=== PATIENT | male | born 1990 | race Caucasian/White ===

== ENCOUNTER 2020-01-25 00:42 | Inpatient (IN) | payer MEDICAID ==
[~2020-01-25] VITALS: Ht 162.6 cm; Wt 64.4 kg
[2020-01-25 00:47] VITALS: Ht 162.6 cm; Wt 64.4 kg
[2020-01-25 01:29] LABS: PLATELET COUNT 241 x10^3mcL (130-400); RED CELL DISTRIBUTION WIDTH 12.7 % (11.5-14.5)
[2020-01-25 01:30] LABS: BASOPHIL % 2.1 % (0-2)
[2020-01-25 01:44] LABS: CALCIUM 8.6 mg/dL (8.5-10.1); CARBON DIOXIDE 29.7 mmol/L (21-32); CHLORIDE SERUM 102 mmol/L (98-107); CREATININE SERUM 1.4 mg/dL (0.7-1.3); GFR1 > 60 mL/min; GLUCOSE SERUM 97 mg/dL (74-106); SODIUM SERUM 136 mmol/L (136-145)
[2020-01-25 01:47] LABS: microscopic required? YES; urine erythrocyte 3+ (NEGATIVE)
--- NOTE | 2020-01-25 01:49 | NUR ---
RECEIVED PT IN ROOM 9 AT 0100 WITH C/O OF GEO YOUNG. PT STATES HE WORKED OUT REALLY HARD 2 DAYS AGO AND NOW HE IS REALLY HURTING AND HE HAD DARK URINE TODAY. HE ALSO COMPLAINS OF LOSSING STRENGTH IN HIS HANDS WHILE AT WORK TODAY.
[2020-01-25 01:53] LABS: ALKALINE PHOSPHATASE 37 U/L (46-116); ALT/SGPT 601 U/L (16-63); BILIRUBIN TOTAL 0.3 mg/dL (0.20-1.00); TOTAL PROTEIN, SERUM 6.9 g/dL (6.4-8.2)
[2020-01-25 01:55] LABS: AST/SGOT 2570 U/L (15-37)
--- NOTE | 2020-01-25 02:36 | NUR ---
pt receiving us at the bedside.
--- NOTE | 2020-01-25 04:08 | NUR ---
PT RESTING COMFORTABLY IN BED WAITING FOR DISPOSITION.
--- NOTE | 2020-01-25 05:21 | NUR ---
PT' SUSPICION ABOUT RABDO WASCONFIRMED BY AT 0515 S/P [place] [id number]. WITH NORMAL OF 100. THEREFORE PT IS BEING ADMITED TO TELEMETRY FOR RABDO TREATMENT AND OBSERVATION.
--- NOTE | 2020-01-25 06:49 | NUR ---
lab reported the carline nascimento as negative.
--- NOTE | 2020-01-25 07:08 | NUR ---
LAB CLLED ND REPORTED THAT THE COVID LAVELL TEST WAS NEGATIVE.
--- NOTE | 2020-01-25 07:29 | NUR ---
Assumed care of patient. Patient sleeping comfortably. on monitor, vss. waiting for admission bed. will continue to monitor.
--- NOTE | 2020-01-25 08:00 | NUR ---
RECEIVED PATIENT FROM THE ER ALERT AND ORIENTED TIMES FOUR. PATIENT HAD DARK URINE AND MUSCLE PAIN ON ADMIT TO ER. THER HE RECEIVED FLUIDS ADN HAS IMPROVED ON PAIN AND THE URINE OUT PUT IS CLEAR. PATIENT HAS BEEN ABLE TO AMBULATE AND NO HISTORY OF ISSUES PRIOR. PATIENT IS A STUDENT AND WORKS OUT REGULARLY AND STAETS HE HAD PAIN THREE DAYS AFTER A STRENOUS WORK OUT. PATIENT DENIES SMOKING, ALCOHOL OR DRUG USE. 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 PULSES STRONG AND LUNGA RE CLEAR AND BOWEL SOUNDS ACTIVE. OFFERED A TRAY BUT DID NOT WANT TO EAT AT THIS TIME. LAST BM WAS YESTERDAY AND HAS ALREADY HAD TWO LITERS OF FLUID AND PER THE PATIENT THE URINE COLOR HAS IMPROVED. VITALS AT THIS TIME AT 124/66, 57, 96.6, 18, 98MAP. PATIEN IN IN THE LOW SIXTIES HEARTRATE. WILL CONTINUE TO MONTIOR INDICATED.
[2020-01-25 08:10] LABS: CHOLESTEROL/HDL RATIO 2.7
[2020-01-25 08:22] LABS: FREE T4 1.13 ng/dL (0.76-1.46); FREE THYROXINE INDEX 2.9 ug/dL (1.4-4.5); T4(THYROXINE) 7.5 ug/dL (4.7-13.3)
[2020-01-25 08:29] VITALS: BP 124/66
[2020-01-25 08:51] LABS: BASOPHIL % 0.4 % (0-2); PLATELET COUNT 204 x10^3mcL (130-400); RED CELL DISTRIBUTION WIDTH 13.2 % (11.5-14.5)
[2020-01-25 09:10] LABS: CARBON DIOXIDE 27.9 mmol/L (21-32); CHLORIDE SERUM 105 mmol/L (98-107); CREATININE SERUM 0.9 mg/dL (0.7-1.3); GFR1 > 60 mL/min; GLUCOSE SERUM 88 mg/dL (74-106); POTASSIUM SERUM 4.4 mmol/L (3.5-5.1); SODIUM SERUM 137 mmol/L (136-145)
[2020-01-25 09:11] LABS: AST/SGOT 1906 U/L (15-37)
--- NOTE | 2020-01-25 12:52 | NUR ---
PATIENT IS RESTING AT THIS TIME. NO COMPLAINTS OF PAIN. PATIENT AMBULATORY AND CONTINUED ON IV FLUIDS ORDERED.
[2020-01-25 12:54] VITALS: BP 117/65
[2020-01-25 15:25] LABS: AMPHETAMINE QUAL UR NONE DETECTED (See below)
--- NOTE | 2020-01-25 15:30 | NUR ---
ADDISON TOVER TH PLAN FO CAR E WIT THE PATIENT. HIS LABS ARE IMPROVING AND NO ORDER WAS WRITEN FOR DISCHARGE AT THIS TIME.
[2020-01-25 17:18] VITALS: BP 129/60
--- NOTE | 2020-01-25 19:45 | NUR ---
PT RECIEVED AAO REG RESP NO SOB R/A SAT 97%,ABDO IS SOFT WITH ACTIVE BOWEL SOUNDS,IV INFUSING WELL WITH THE SITE PTENT AND INTACT,PT ON TELE MONITOR AND IN NSR NO ECTOPY OR CHEST PAIN AT THIS TIME,KEPT CLEAN AND DRY TO TOUCH AND WILL CONTINUE TO MONITOR.
[2020-01-25 20:18] VITALS: BP 107/53
[2020-01-26 05:44] VITALS: BP 113/68
--- NOTE | 2020-01-26 06:18 | NUR ---
PT HAD A RESTING NIGHT NO CHANGE AT THIS TIME,WILL CONTINUE TO MONITOR.
--- NOTE | 2020-01-26 07:20 | NUR ---
RECIEVED PT RESTING IN BED WITH NO C/O PAIN OR DISTRESS. A/O X4 WITH NO JACKSON ORDIZZINESS. TELE#8 CONNECTED TO PT AND HE DENIES ANY CP OR PRESSURE. LUNGS CTAB WITH NO SOB NOTED. NS RUNNING AT 200ML/HR IN RAC, CDI AND PATENT. SAFETY PRECAUTIONS IN PLACE, CALL LIGHT WITHIN REACH, WILL MONITOR.
[2020-01-26 08:27] VITALS: BP 117/71
[2020-01-26 11:56] VITALS: BP 126/59
--- NOTE | 2020-01-26 13:11 | NUR ---
HARSHASET DESIGN[place] [id number], WILL CARRY OUT ANY NEW ORDERS.
--- NOTE | 2020-01-26 14:32 | NUR ---
PT STABLE, RESTING IN BED WITH NO DISTRESS NOTED. WILL CONTINUE TO MONITOR.
[2020-01-26 14:37] LABS: T3 TOTAL 1.12 ng/mL
[2020-01-26 15:36] VITALS: BP 120/51
--- NOTE | 2020-01-26 18:46 | NUR ---
PT RESTING IN BED WITH NO C/O PAIN OR DISTRESS. A/O X4 WITH NO JACKSON/ DIZZINESS. TELE#8 CONNECTED TO PT AND HE DENIES ANY CP OR PRESSURE. LUNGS CTAB WITH NO SOB NOTED. NS RUNNING AT 200ML/HR IN RAC, CDI AND PATENT. SAFETY PRECAUTIONS IN PLACE, CALL LIGHT WITHIN REACH, WILL ENDORSE CARE OVER TO MARKETING OPERATIONS ANALYST.
--- NOTE | 2020-01-26 19:44 | NUR ---
PT RECIEVED AAO REG RESP NO SOB,ABDO IS SOFT WITH ACTIVE BOWEL SOUNDS,IV INFUSING WEL WITH THE SITE PATENT AND INTACT,PT ON TELE MONITOR AND IN NSR NO ECTOPY OR CHEST PAIN AT THIS TIME,KEPT CLEAN AND DRY TO TOUCH,CALL LIGHT EASY REACHED AND WILL CONTINUE TO MONITOR.
[2020-01-26 21:10] VITALS: BP 112/58
[2020-01-27 05:32] VITALS: BP 101/54
--- NOTE | 2020-01-27 06:24 | NUR ---
PT HAD A RESTING NIGHT NO CHNAGE AT THIS TIME,WILL CONTINUE TO MONITOR.
[2020-01-27 07:13] LABS: CALCIUM 8.7 mg/dL (8.5-10.1); CARBON DIOXIDE 30.4 mmol/L (21-32); CHLORIDE SERUM 104 mmol/L (98-107); CREATININE SERUM 0.9 mg/dL (0.7-1.3); GFR1 > 60 mL/min; GLUCOSE SERUM 82 mg/dL (74-106); POTASSIUM SERUM 4.2 mmol/L (3.5-5.1); SODIUM SERUM 139 mmol/L (136-145)
--- NOTE | 2020-01-27 07:30 | NUR ---
RECEIVED PT FROM SENIOR COMMUNICATIONS ENGINEER NURSE. PT SLEEPING, A/O X 4. TELE #8, NSR. PT ON RA, BREATHING EVEN/UNLABORED. IN NO ACUTE RESP DISTRESS. IV TO LAC PATENT, INFUSING NS AT 200ML/HR. PT IN NO APPARENT PAIN AT THIS TIME. WILL CONT TO MONITOR.
[2020-01-27 08:45] VITALS: BP 117/59
[2020-01-27 09:14] LABS: BASOPHIL % 0.5 % (0-2); PLATELET COUNT 201 x10^3mcL (130-400); RED CELL DISTRIBUTION WIDTH 13.3 % (11.5-14.5)
--- NOTE | 2020-01-27 10:41 | NUR ---
SPOKE WITH GENOVEVA LABORER CEMENT GUN PLACING REGARDING IV FLUIDS ORDERED. NS IS INFUSING AT 200ML/HR, ASKED LABORER CEMENT GUN PLACING IF FLUIDS COULD BE DECREASED SINCE PT IS EATING AND DRINKING WATER WELL. PER LABORER CEMENT GUN PLACING, FLUIDS WILL BE KEPT AT THIS RATE FOR NOW, BUT LABORER CEMENT GUN PLACING WILL TALK TO THE PT, STATES THAT IF PT IS EXHIBITING NO MORE SYMPTOMS, PT CAN BE DISCHARGED LATER TODAY.
[2020-01-27 12:10] VITALS: BP 119/56
--- NOTE | 2020-01-27 12:21 | NUR ---
PT RESTING IN BED. PT ASKING QUESTIONS ABOUT DISCHARGE, EDUCATED PT ABOUT DISEASE PROCESS AND LABS ORDERED TOMORROW MORNING. PT REPORTS NO PAIN AT THIS TIME. ALL QUESTIONS/CONCERNS ADDRESSED. WILL CONT TO MONITOR.
--- NOTE | 2020-01-27 14:09 | NUR ---
Discount pharmacy card and list to low cost medical clinics given to patient.
--- NOTE | 2020-01-27 15:59 | NUR ---
PT CALLED OVER CALL LIGHT, STATES THAT IV IS LEAKING. IV TO LAC LEAKING, NO SWELLING/ERYTHEMA NOTED. IV TO LAC D/C'D, NEW 22G IV INSERTED TO RFA, PATENT, DRESSING CDI. INFUSING NS AT 200ML/HR. WILL CONT TO MONITOR.
[2020-01-27 16:27] VITALS: BP 110/68
--- NOTE | 2020-01-27 18:58 | NUR ---
PT RESTING IN BED, A/O X 4. TELE #8, NSR. BREATHING EVEN/UNLABORED, IN NO ACUTE RESP DISTRESS. IV TO RFA 22 G INFUSING NS AT 200ML/HR, PATENT, DRESSING CDI. PT REPORTS NO PAIN AT THIS TIME. WILL ENDORSE TO AIRCRAFT NAVIGATOR NURSE.
--- NOTE | 2020-01-27 19:40 | NUR ---
PATIENT RECEIVED IN BED, ALERT AND ORIENTED X 4. DISCUSSED WITH PATIENT PLAN OF CARE. PATIENT DENIES PAIN, SELF REPOSITIONED. NEEDS ANTICIPATED BY STAFF. 22G TO RIGHT FOREARM INTACT. NO SIGNS OF INFILTRATION. PATHOLOGICAL TECHNICIAN #8. NSR. RESPIRATIONS EVEN AND NONLABORED. PATIENT VERBALIZES NEED TO STAFF. NO ACUTE DISTRESS NOTED. VSS.
[2020-01-27 20:30] VITALS: BP 116/70
[2020-01-27 20:50] VITALS: BP 102/61
[2020-01-28] VITALS: BP 118/68
--- NOTE | 2020-01-28 | NUR ---
PATIENT SLEEPING DURING ROUNDING, EASILY AROUSED. VSS. FALL AND SAFETY PRECAUTIONS MAINTAINED. NO ACUTE DISTRESS NOTED.
[2020-01-28 05:42] VITALS: BP 101/59
--- NOTE | 2020-01-28 06:00 | NUR ---
PATIENT SLEEPING DURING ROUNDING, EASILY AROUSED. FALL AND SAFETY PRECAUTIONS MAINTAINED. VSS.
--- NOTE | 2020-01-28 07:17 | NUR ---
RECEIVED PT FROM CLERICAL ORDER FILLER NURSE. PT RESTING IN BED, AOX4, RESP E/U ON RA. DENIES HEADACHE, FATIGUE OR MUSCLE ACHES AT THIS TIME. NO ACUTE DISTRESS NOTED. ON TELE 8 SHOWING SINUS BERE, HR: 58. IV TO RFA W/ NO SIGNS OF INFILTRATION, IVF INFUSING WELL. BED IN LOWEST POSITION AND CALL LIGHT WITHIN REACH. WILL CONTINUE TO MONITOR.
[2020-01-28 07:34] LABS: CALCIUM 8.7 mg/dL (8.5-10.1); CARBON DIOXIDE 25.5 mmol/L (21-32); CHLORIDE SERUM 107 mmol/L (98-107); CREATININE SERUM 0.7 mg/dL (0.7-1.3); GFR1 > 60 mL/min; GLUCOSE SERUM 81 mg/dL (74-106); POTASSIUM SERUM 3.7 mmol/L (3.5-5.1); SODIUM SERUM 142 mmol/L (136-145)
[2020-01-28 08:14] VITALS: BP 107/68
[2020-01-28 12:15] VITALS: BP 96/62
--- NOTE | 2020-01-28 12:39 | NUR ---
PT RESTING IN BED, AOX4, RESP E/U ON RA. DENIES HEADACHE/BODY ACHES OR PAIN/DISCOMFORT AT THIS TIME. NO ACUTE DISTRESS NOTED. BED IN LOWEST POSITION AND CALL LIGHT WITHIN REACH. WILL CONTINUE TO MONITOR.
[2020-01-28 16:08] VITALS: BP 99/59
--- NOTE | 2020-01-28 18:36 | NUR ---
PT RESTING IN BED, AOX4, RESP E/U ON RA. C/O MILD SORENESS TO ARMS BUT TOLERABLE, OTHERWISE NO ACUTE DISTRESS NOTED. IV TO RFA PATENT/INTACT, WNL. BED IN LOWEST POSITION AND CALL LIGHT WITHIN REACH. WILL ENDORSE TO ONCOMING NURSE.
--- NOTE | 2020-01-28 19:35 | NUR ---
PATIENT RECIEVED IN BED ALERT AND ORIENTED X 4. TELE MONITOR #8 SR, SB. ACYANOTIC, SKIN WARM AND DRY TO TOUCH. NO COMPLAINT OF PAIN. SELF REPOSITIONS FOR COMFORT. LCTA BILATERALLY, RESPIRATIONS EVEN AND NONLABORED. PATIENT COMPLAINT OF MINOR DISCOMFORT TO BILATERAL ARMS. 22G IV TO RIGHT FOREARM INFUSING NS @ 22/ML/HR. SITE INTACT. PATIENT SELF AMBULATE TO BATHROOM WITH STEADY GAIT. DISCUSSED WITH PATIENT RN PLAN OF CARE/MEDICATION REGIMEN AND FALL/SAFETY PRECAUTIONS. RN WILL CONTINUE WITH PLAN OF CARE. NO ACUTED DISTRESS NOTED.
[2020-01-28 19:54] VITALS: BP 101/56
--- NOTE | 2020-01-29 | NUR ---
PATIENT SLEEPING DURING ROUNDING, EASILY AROUSED. VSS. LCTA BILATERALLY. NO C/O PAIN, SELF RESPOSITIONS. FALL AND SAFETY PRECAUTIONS MAINTAINED. NO ACUTE DISTRESS NOTED.
[2020-01-29 05:10] VITALS: BP 109/56
--- NOTE | 2020-01-29 06:48 | NUR ---
PATIENT SLEEPING DURING ROUNDING. PT EASILY AROUSED. VSS. NO ACUTE DISTRESS NOTED. VSS.
[2020-01-29 06:52] LABS: BASOPHIL % 0.4 % (0-2); PLATELET COUNT 206 x10^3mcL (130-400); RED CELL DISTRIBUTION WIDTH 12.9 % (11.5-14.5)
[2020-01-29 07:10] LABS: CARBON DIOXIDE 28.9 mmol/L (21-32); CHLORIDE SERUM 110 mmol/L (98-107); CREATININE SERUM 0.9 mg/dL (0.7-1.3); GFR1 > 60 mL/min; GLUCOSE SERUM 88 mg/dL (74-106); POTASSIUM SERUM 4.2 mmol/L (3.5-5.1); SODIUM SERUM 145 mmol/L (136-145)
--- NOTE | 2020-01-29 08:00 | NUR ---
PATIENT IS AOX4, SINUS BRADYCARDIA, RESPIRATIONS EVEN AND UNLABORED ON ROOM AIR. DENIES PAIN, REPORTS MILD MUSCLE SORENESS BUT BETTER THAN DAY OF ADMISSION. PATIENT IS SELF-AMBULATORY. FLUIDS INFUSING AT 200CC/HOUR, URINE IS CLEAR AND YELLOW. UPDATED PATIENT ON PLAN OF CARE. WILL CONTINUE TO MONITOR.
[2020-01-29 09:25] VITALS: BP 113/61
--- NOTE | 2020-01-29 11:26 | NUR ---
[place] [address]. CASEY TOMAS MADE AWARE. AWAITING NEPHROLOGY CONSULT. PATIENT MADE AWARE. AMBULATING IN HALLWAY WITH NO COMPLAINTS AT THIS TIME.
[2020-01-29 13:14] VITALS: BP 111/65
[2020-01-29 15:28] LABS: microscopic required? NO
[2020-01-29 15:33] LABS: UA SPECIFIC GRAVITY 1.015 (1.005-1.035); urine erythrocyte NEGATIVE (NEGATIVE)
[2020-01-29 17:35] VITALS: BP 111/63
--- NOTE | 2020-01-29 19:26 | NUR ---
PT RECIEVED FROM DAY NURSE. PT RESTING IN BED AT THIS TIME. DENIES PAIN OR DISCOMFORT. PT A/OX4, CALM AND COOPERATIVE AT THIS TIME. TELE 8, SR. DENIES CP, NV, DIZZINESS, OR PALPATATIONS AT THIS ITME. PALPABLE PULSES, NO EDEMA AT THIS TIME. BREATHING E/U ON RA. DENIES SOB. ABD SOFT AND FLAT, DENIES PAIN TO PALPATION. AMBULATORY AT BASELINE. IV TO RFA, CDI AND INFUSING. BED AT LOWEST POSITION, CALL LIGHT WITHIN REACH. WILL CONTINUE TO MONITOR.
[2020-01-29 21:37] VITALS: BP 104/64
[2020-01-30 05:45] VITALS: BP 126/75
--- NOTE | 2020-01-30 06:23 | NUR ---
PT RESTING IN BED AT THIS TIME. BREATHING E/U ON RA. NO S.S OF ACUTE DISTRESS NOTED. DENIE PAIN OR DISCOMFORT. ALL NEEDS AND CONCERS ADDRESSED THIS SHIFT. WILL ENDORSE TO DAY NURSE.
[2020-01-30 06:59] LABS: BASOPHIL % 0.3 % (0-2); PLATELET COUNT 207 x10^3mcL (130-400); RED CELL DISTRIBUTION WIDTH 13.2 % (11.5-14.5)
[2020-01-30 07:18] LABS: ALBUMIN 3.5 g/dL (3.4-5.0); ALKALINE PHOSPHATASE 31 U/L (46-116); ALT/SGPT 311 U/L (16-63); AST/SGOT 262 U/L (15-37); BILIRUBIN TOTAL 0.6 mg/dL (0.20-1.00); CALCIUM 8.9 mg/dL (8.5-10.1); CARBON DIOXIDE 30.1 mmol/L (21-32); CHLORIDE SERUM 109 mmol/L (98-107); GFR1 > 60 mL/min; GLUCOSE SERUM 85 mg/dL (74-106); MAGNESIUM 1.7 mg/dL (1.8-2.4); PHOSPHOROUS 3.4 mg/dL (2.5-4.9); POTASSIUM SERUM 4.4 mmol/L (3.5-5.1); SODIUM SERUM 144 mmol/L (136-145); TOTAL PROTEIN, SERUM 6.3 g/dL (6.4-8.2)
--- NOTE | 2020-01-30 07:33 | NUR ---
ASSUMED CARE FOR PATIENT. AOX4, SINUS RHYTHM ON TELE MONITOR 8, RESPIRATIONS EVEN AND UNLABORED ON ROOM AIR. DENIES PAIN/MUSCLE SORENESS AT THIS TIME. UPDATED PATIENT ON PLAN OF CARE INCLUDING PENDING CK RESULTS. PATIENT REPORTED UNDERSTANDING. SELF AMBULATES, TOLERATING DIET WELL. NO COMPLAINTS AT THIS TIME. WILL CONTINUE TO MONITOR.
[2020-01-30 08:54] VITALS: BP 109/57
[2020-01-30 12:13] VITALS: BP 103/66
--- NOTE | 2020-01-30 18:30 | NUR ---
PATIENT IS RESTING COMFORTABLY IN BED. NO COMPLAINTS AT THIS TIME. IV FLUIDS INFUSING. WILL ENDORSE TO NIGHT RN.
--- NOTE | 2020-01-30 19:30 | NUR ---
PT RECIEVED FROM DAY NURSE. PT RESTING IN BED AT THIS TIME. PT A/OX4, CALM AND COOPERATIVE AT THIS TIME. TELE 8, NSR. DENIES CP, NV, DIZZINESS, OR PALPATATIONS AT THIS TIME. PALPABLE PULSES, NO EDEMA NOTED AT THIS TIME. BREATHING E/U ON RA. NO S/S OF SOB AT THIS TIME. ABD SOFT AND FLAT, DENIES PAIN TO PALPATION AT THIS TIME. IV TO RFA, CDI AND INFUSING. BED AT LOWEST POSITION, CALL LIGHT WITHIN REACH, WILL CONTINUE TO MONITOR.
[2020-01-30 21:00] VITALS: BP 110/69
--- NOTE | 2020-01-31 | NUR ---
PT RESTING IN BED AT THIS TIME. DENIES PAIN OR DISCOMFORT. PT BREATHING E/U ON RA. NO S/S OF ACUTE DISTRESS AT THIS TIME. WILL CONTINUE TO MONITOR.
[2020-01-31 05:30] VITALS: BP 104/65
--- NOTE | 2020-01-31 06:42 | NUR ---
PT RESTING IN BED AT THIS TIME. DENIES PAIN OR DISCOMFORT. PT BREATHING E/U ON RA. NO S/S OF ACUTE DISTRESS AT THIS TIME. ALL NEEDS AND CONCERNS ADDRESSED. WILL ENDORSE TO DAY NURSE.
--- NOTE | 2020-01-31 07:25 | NUR ---
RECEIVED PT IN BED. ASSESSED AND WILL DOCUMENT. DENIES ANY PAIN THIS TIME. PT IS STABLE. NO DISTRESS NOTED. SAFTEY PRECAUTIONS ARE IN PLACE. WILL MONITOR.
[2020-01-31 08:20] VITALS: BP 105/56
[2020-01-31 09:40] LABS: CALCIUM 9.4 mg/dL (8.5-10.1); CARBON DIOXIDE 27.4 mmol/L (21-32); CHLORIDE SERUM 106 mmol/L (98-107); CREATININE SERUM 0.9 mg/dL (0.7-1.3); GFR1 > 60 mL/min; GLUCOSE SERUM 89 mg/dL (74-106); POTASSIUM SERUM 4.3 mmol/L (3.5-5.1); SODIUM SERUM 141 mmol/L (136-145)
[2020-01-31 12:36] VITALS: BP 101/59
--- NOTE | 2020-01-31 14:00 | NUR ---
PT RESTING IN BED COMFORTABLY. DENIES ANY PAIN. NO DISTRESS NOTED. AMBULATING WELL. STABLE.
[2020-01-31 16:59] VITALS: BP 100/55
--- NOTE | 2020-01-31 19:10 | NUR ---
PT REMAINS STABLE. DENIES ANY PAIN. GAVE REPORT TO CAREER PLACEMENT SPECIALIST NURSE.
[2020-01-31 20:27] VITALS: BP 106/59
[2020-02-01 06:18] VITALS: BP 112/63
--- NOTE | 2020-02-01 06:49 | NUR ---
PT RESTING IN BED AT THIS TIME. NO S/S OF ACUTE DISTRESS NOTED. ALL NEEDS AND CONCERNS ADDRESSED. WILL ENDORSE TO DAY NURSE.
--- NOTE | 2020-02-01 07:15 | NUR ---
RECEIVED PT FROM OUTDOOR ADVENTURE INSTRUCTOR RN. AOX4 ABLE TO MAKE NEEDS KNOWN, DENIES JACKSON/DIZZINESS. TELE 8 NSR. LUNGS CTA, DENIES CP/PRESSURE, DENIES SOB/COUGH, RESP E/U, ON RA. ABDOMEN SOFT/FLAT, DENIES N/V/D, BOWEL SOUNDS ACTIVE. VOIDS FREELY, BRP. SKIN INTACT, NO C/O PAIN, IV TO RFA WITH NS AT 150 ML/HR. CALL LIGHT IN REACH, WILL CONTINUE TO MONITOR.
--- NOTE | 2020-02-01 07:45 | NUR ---
I WAS NOT GIVEN REPORT BY CHARCOAL KILN BURNER NURSE. PATIENT FOUND TO BE ALERT AND ORIENTED X 4, NO ACUTE DISTRESS OBSERVED OR REPORTED, WILL CONTINUE TO MONITOR.
[2020-02-01 08:09] VITALS: BP 114/70
--- NOTE | 2020-02-01 12:01 | NUR ---
PATIENT WANTS TO KNOW WHEN HE WILL BE DISCHARGED TODAY SO HE MAY APPLY FOR SCHOOL. I SPOKE TO HAND SPRING REPAIRER WHO ADVISED THE PATIENT MAY BE DISCHARGED ONCE NEPHO CLEARS THE PATIENT. I ATTEMPTED TO CALL DR. CALDWELL BUT WAS UNABLE TO GET THROUGH.
[2020-02-01 12:17] VITALS: BP 115/65
--- NOTE | 2020-02-01 13:14 | NUR ---
SPOKE TO DR.JIN BUENROSTRO(NEPHRO) AND HE CLEARED PT OKAY TO D/C HOME TODAY, CALLED AND SPOKE TO GENOVEVA(N.P.) AND MADE HER AWARE OF ABOVE. PER GENOVEVA, PT WILL BE DISCHARGEING HOME TODAY. JUSTIN ZAPATA ASSIGNED TO THIS PT MADE AWARE OF ABOVE.
--- NOTE | 2020-02-01 13:18 | NUR ---
IV DC'D AT THIS TIME PATIENT PREPARES FOR DISCHARGE HOME, TELE ALSO RETURNED TO [place] [facility]. IV SITE DRESSED WITH GAUZE AND COBAN, PATIENT TOLERATED WELL.
--- NOTE | 2020-02-01 13:29 | NUR ---
PER PATIENT REQUEST I SPOKE TO HIS SISTER IN LAW WHO REQESTED AN OVERVIEW OF PATIENT'S CARE PLAN. I ADVISED ON WHY THE PATIENT WAS ADMITTED AND CURRENT PLAN OF CARE. SHE VERBALIZED UNDERSTANDING. HER NAME IS DELORIS AND CAN BE REACHED AT [phone], THE PATIENT'S BROTHER SULEIMAN CAN ALSO BE REACHED AT THIS NUMBER.
== END 2020-02-01 14:01 | disposition home or self-care (01) | DRG 351 ==
LOC: ED 00:42 → DU 05:12
PROVIDERS: Emergency Medicine; Internal Medicine; Internal Medicine Nephrology; ADMIT Internal Medicine; ATTEND Internal Medicine
DX: M62.82 Rhabdomyolysis (principal); N17.0 Acute kidney failure with tubular necrosis; R74.0 Nonspecific elevation of levels of transaminase and lactic acid dehydrogenase [LDH]; Z20.828 Contact with and (suspected) exposure to other viral communicable diseases; X50.9XXA Other and unspecified overexertion or strenuous movements or postures, initial encounter; X50.0XXA Overexertion from strenuous movement or load, initial encounter
CPT/HCPCS: 83880; 84439; G0378; G0480; J7030; Q0092